=== PATIENT | female | born 1985 | race Caucasian/White ===

== ENCOUNTER 2016-09-07 14:25 | Inpatient (IN) | payer OTHER ==
[~2016-09-07] VITALS: Ht 162.6 cm; Wt 102.5 kg
[2016-09-07] MEDS ORDERED: Lactated Ringer's 1,000 ML IV PRN (15:10)
[2016-09-07] MEDS ORDERED: Sodium Chloride LOK Flush 10 mL Syringe IVFLUSH PRN (15:10)
[2016-09-07] MEDS ORDERED: Hemorrhage Kit, Post Partum XX ONE (15:10)
[2016-09-07] MEDS ORDERED: Oxytocin 10 Unit/mL Inj IM PRN (15:10)
[2016-09-07] MEDS ORDERED: Carboprost 250 mCg/mL Inj IM PRN (15:10)
[2016-09-07] MEDS ORDERED: Oxytocin 30 Units/500 mL LR 30 UNITS in IV Premix 1 EACH IV PRN (15:10)
[2016-09-07] MEDS ORDERED: Methylergonovine 0.2 mg/mL Inj IM PRN (15:10)
[2016-09-07 15:23] LABS: Mean Corpuscular Volume 87.7 fL (81-100)
--- NOTE | 2016-09-07 17:44 | PCM.HPOB ---
Subjective Date of Service: Sep 07, 2016 Referring Provider: Admitting Physician: Eunice Newell MD Primary Care Physician: Aixa Hurst MD Attending Physician: Eunice Newell MD Chief Complaint TOLAC History of Present History of Present Illness Janny Banda is a 30 year old at 40w with a PMH of Cesarian delivery due to chorioamnionitis. has been complicated by US determined LGA status at approximately 97-99%. Janny states that her last C section was very difficult and she had a protracted recovery process, thus she is apprehensive to pursue another CS and would like to reserve this option as a last resort. That being said her calculated probability of success for TOLAC in this instance is approximately 61%. She has been advised that a planned C section has a lower rate of adverse events, but would like to proceed with TOLAC. Upon presentation her cervix measured 3 cm, 90% effacement, and -2 station. She presented to the [facility] last evening for what she perceived to be active labor, but was sent home due to unchanged cervix over the course of several hours. 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) Past Medical History Obstetrical History: Chorioamnionitis resulting in Cesarian Section Surgical History: Cholecystectomy Knee arthroplasty x3 Hx Tobacco Use: No Smoking Status: Never Smoker Hx Alcohol Use: Yes (social) Hx Substance Use: No Past Family History Living Arrangement: with Family Genetic Screening/Counseling Genetic Screening/Counseling: Negative Baby father-had child w defect: No Review of Systems Constitutional: Y: Change of appitite, Chills, Dizziness, Fever, Malaise, Other , Pain, Sweats, Weakness, Weight loss Eyes: Denies: Blurred Vision, Conjunctive Inflammation, Double Vision, Eyelid Inflammation, Other, Pain, Redness, Vision Changes ENT: Denies: Dental Problems, Dysphagia, Ear Discharge, Ear Pain, Hoarseness, Membranes Dry, Nasal Congestion, Nose Discharge, Nose Pain, Other, Throat Pain, Tinnitus, Ulcers/Sores in Mouth Cardiovascular: Denies: Chest Pain, Edema, Orthopnea, Other, Palpitations, SOB while laying flat Respiratory: Denies: Cough, Cough with bloody sputum, Other, Pleuritic Chest Pain, Pleuritic Chest Pain, SOB with Exertion, Sputum, Wheezing Gastrointestinal: Reports: Constipation, Denies: Abdominal Pain, Black tarry stools, Blood in stool (red), Change in Appetite, Diarrhea, Epigastric pain, Heartburn, Nausea, Other, Use of Laxatives , Vomiting Genitourinary: Denies: Anuria, Change in Frequency, Dysuria, Hematuria, Incontinence, Nocturia, Other, Retention Musculoskeletal: Reports: Back Pain, Denies: Deformity, Limitation of Function, Neck Pain, Other, Redness, Shoulder Pain, Swelling Skin/Breasts: Denies: Bruising, Discharge, Dry or Flakiness, Jaundice, Lesions , Masses, Mastalgia, Other, Rash, Scars, Ulcers Skin: Denies: Bruising, Dry or Flakiness, Jaundice, Lesions, Other, Rash, Scars , Ulcers Neurological: Denies: Change in Speech, Confusion, Dizziness, Incoordination, Numbness, Other, Seizures, Somnolence, Tremors, Weakness Psychologic: Denies: Agitation, Anxious, Apprehensive, Depression, Insomnia, Instability, Nervousness, Other Endocrine: Denies: Blood Glucose Review, Change in Appitite, Diaphoresis, Excessive Thirst, Intolerent to Heat/Cold, Other, Recent A1C, Urinating frequently Hematologic: Denies: Abnormal bleeding, Adenopathy, Bruising, Other Medications Home medications Vitamin Valacyclovir 500 mg Daily Allergy Coded Allergies: No Known Allergies (Unverified , 09/06/16) Exam Vital Signs Exam Category 1 FHT Constitutional: Well-developed, Well-nourished, Normal habitus, Well-groomed HEENT: Atraumatic, PERRLA, EOMI, Scleral Anicteric Lungs: Clear to Auscultation, Clear to Percussion, Normal Air Movement Heart: Exam Unremarkable, Regular Rate/Rhythm, Normal S1, Normal S2, No Murmurs /Rubs/Gallops Fundus Firm Abdomen: Gravid, Normal bowel sounds, Soft Extremities: Pulses Palpable x4, Edema (Mild BL LE edema) Neurological/Psychiatric: Alert, Oriented X3, Cooperative, No Acute Distress Neuro: Grossly Neurologically Intact Labs/Diagnostics Maternal Blood Type: A (Positive) Hx Rho(D) Immune Globulin: No Group B Strep Results: Negative Previous Infant with GBS: No Rubella: Immune Lab History: Positive for: Hx Herpes (No active lesions at this time) OB Intrapartum Assessment/Plan Assessment Janny Banda is a 30 year old woman at 40 weeks gestation presenting in active labor. has been complicated by HSV with active lesion early in the course of , and US demonstrated macrosomia in the 94-99%. She has been advised that there is a very high likelihood that she may need to have another C section, however because she had such a prolonged and difficult recovery from her previous C section she wants to reserve this as a last resort after TOLAC. At the time of presentation her cervix was 3cm 90% and -2 station. Problems: (1) Active labor at term Plan: -Continue with TOLAC -Be aware of signs of cephalo-pelvic disproportion and shoulder dystocia given likely macrosomia -High likelihood of progression to Cesarian delivery Status: Acute ICD Code: [id number] Pain Evaluation: Adequate Pain Control Attending Statement The patient was seen and examined together with Dr. Ricky Lee DO on 2015 and I have added additional information to the note above. Ricky Lee DO Sep 07, 2016 17:37 Eunice Newell MD Sep 07, 2016 18:07
[2016-09-07] MEDS ORDERED: fentaNYL-PF 50 mCg/mL 2 mL Inj ONE (18:47)
[2016-09-07] MEDS ORDERED: fentaNYL 2 mCg/mL-Bupivicaine 0.125% 100 mL Premix EPIDURAL ONE (18:48)
[2016-09-07] MEDS ORDERED: Lactated Ringer's 500 ML IV ONE (19:21)
--- NOTE | 2016-09-07 19:23 | PCM.HPANE ---
Patient Data Surgeon Admitting Provider:Eunice Newell MD Attending Provider:Eunice Newell MD Primary Care Physician:Aixa Hurst MD Other Provider:Meek Naranjo Anesthesia Reason for Visit Early Labor EARLY LABOR Ht/WT & BMI Body Mass Index Allergies Coded Allergies: No Known Allergies (Unverified , 09/06/16) History Hx Alcohol Use: Yes (social)Hx Substance Use: No Smoking Status: Never Smoker Stop/Bang Risk Assessment Category Category 1A: Patient has history of documented sleep apnea, and HAS NOT received any narcotic, sedative or anesthesia administration during this stay. Category 1B: Patient has history of documented sleep apnea, and HAS received any narcotic , sedative or anesthesia administration during this stay Category 2: Patient has SUSPECTED Obstructive Sleep Apnea, and HAS received any narcotic , sedative or anesthesia administration during this stay. Category 3: Patient has SUSPECTED Obstructive Sleep Apnea and HAS NOT received narcotic, sedative or anesthesia administration during this stay. Category 4: Outpatient in Procedural Areas with known sleep apnea or who screen positive for High Risk via the STOP/BANG questionnaire. Exam Exam General Appearance: Alert, Oriented X3, Cooperative Lungs: Clear to Auscultation, Clear to Percussion, Normal Air Movement Heart: Exam Unremarkable Meds/Labs/Diagnostics Labs Test 09/07/16 15:15 White Blood Count 14.1th/mm3 (3.8-10.1) Red Blood Count 3.73mil/mm3 (3.90-5.20) Hemoglobin 10.8g/dL (12.0-15.6) Hematocrit 32.7% (35.0-46.0) Mean Corpuscular Volume 87.7fL (81-100) Mean Corpuscular Hemoglobin 29.0pg (27.0-35.0) Mean Corpuscular Hemoglobin Concent 33.0% (32.0-37.0) Red Cell Distribution Width 12.8% (12.3-15.4) Platelet Count 239bil/L (150-400) Plan Impression Patient chart reviewed, patient interviewed and anesthestic plan with risks, benefits, and alternatives discussed, and informed consent obtained. ASA Physical Status: ASA2 Mod Systemic Disease Anesthetic Plan: Epidural Bene/Risks/Altern/Consents: Yes HP Complete Prior to Induction: Yes Cruz John MD Sep 07, 2016 19:23
[2016-09-07] MEDS ORDERED: EPHEDrine Sulfate 50 mg/mL Inj IVPUSH PRN (19:25)
[2016-09-07] MEDS ORDERED: Ondansetron 2 mg/mL 2 mL Inj IVPUSH PRN (19:25)
[2016-09-07] MEDS ORDERED: fentaNYL 2 mCg/mL-Bupiv 0.125% 100 ML EPIDURAL SCH (19:25)
[2016-09-07] MEDS ORDERED: Atropine 1 mg/10 mL (Code) Syringe IVPUSH PRN (19:25)
[2016-09-08] MEDS ORDERED: Sodium Chloride LOK Flush 10 mL Syringe IVFLUSH SCH (00:30)
[2016-09-08] MEDS: Lactated Ringer's 1,000 ML IV SCH ×3 (01:51→06:36)
--- NOTE | 2016-09-08 07:07 | PCM.PNOBIP ---
Subjective Date of Service Sep 08, 2016 Subjective comfortable on epidural. No N./V. No complaint. Group B Strep Results: Negative Rubella: Immune Blood Type: A (Positive) Labs Laboratory Tests 09/07/16 15:15: White Blood Count 14.1, Red Blood Count 3.73, Hemoglobin 10.8, Hematocrit 32.7, Mean Corpuscular Volume 87.7, Mean Corpuscular Hemoglobin 29.0, Mean Corpuscular Hemoglobin Concent 33.0, Red Cell Distribution Width 12.8, Platelet Count 239 Exam Vital Signs Vital Signs Contraction frequency in minutes: MVUs: Heart Tracings Heart Tones Baseline 140 bpm Heart Rate Variability: Moderate Heart Rate Accelleration: Absent Heart Rate Deceleration: Absent Heart Rate Category: I Tocometry/IUPC Contraction frequency in minutes: every 5 minutes. at 4:16 a4 minutes prolonged decelerations resolved with IV hydration and position change back to baseline 140 with minimal-moderate variability spontaneous accelerations, no more decelerations. Sterile Vaginal Exam Cervical Dilation: 7 cms (to 8, last exam at 419 was 8 cm. ) Cervical Effacement: 100 % Station: -2 Exam General: Alert, Oriented X3, Cooperative OB Intrapartum Assessment/Plan Assessment 30 year old woman at 40 weeks 1 days 1. TOLAC , spontaneous labor. Labor dystocia, offered AROM. Desires to wait until further evaluation By . 2. Suspected macrosomia in the 94-99%. 3. GBS negative 4. HSV on suppression therapy. Problems: (1) Active labor at term Status: Acute ICD Code: [id number] Pain Evaluation: Adequate Pain Control Aj Mtz MD Sep 08, 2016 07:07
[2016-09-08] MEDS ORDERED: Dextrose 5% Lactated Ringer's 1,000 ML IV SCH (10:05)
[2016-09-08] MEDS ORDERED: Lactated Ringer's 1,000 ML IV SCH ×2 (10:07→17:30)
[2016-09-08] MEDS ORDERED: Oxytocin 30 Units/500 mL LR 30 UNITS in IV Premix 1 EACH IV PRN ×2 (10:10→17:30)
--- NOTE | 2016-09-08 10:24 | PCM.PNOBIP ---
Subjective Date of Service Sep 08, 2016 Delivery plan: Vaginal Delivery after Ceserean Visit History Janny is a 30yo with a hx of due to chorioamnionitis who presented to labor and delivery at 40weeks gestation with contractions. This has been complicated by US determined LGA status at approximately 97- 99%. Janny has reported that her was very difficult and she had a protracted recovery process, thus she is apprehensive to pursue another CS and would like to reserve this option as a last resort. She desired an epidural and one has been placed with good pain control. There have been some late decelerations on monitoring, thus an IUPC and scalp electrode have been placed for more accurate monitoring. She has been given supplemental oxygen and has been laying on her side which has improved her baby's heart rate. Pain Management: Epidural Gastrointestinal: No N/V Group B Strep Results: Negative Rubella: Immune Blood Type: A (Positive) Labs Laboratory Tests 09/07/16 15:15: White Blood Count 14.1, Red Blood Count 3.73, Hemoglobin 10.8, Hematocrit 32.7, Mean Corpuscular Volume 87.7, Mean Corpuscular Hemoglobin 29.0, Mean Corpuscular Hemoglobin Concent 33.0, Red Cell Distribution Width 12.8, Platelet Count 239 Exam Vital Signs Vital Signs Contraction frequency in minutes: MVUs: Vital Signs: VS reviewed, stable Heart Tracings Heart Tones Baseline 140 bpm Tocometry/IUPC Contraction frequency in minutes: MVUs: Sterile Vaginal Exam Cervical Dilation: 9 cms (to 8, last exam at 419 was 8 cm. ) Cervical Effacement: 100 % Station: -1 Exam Extremities: Other (trace lower extremity edema) Lungs: Clear to Auscultation, Normal Air Movement Heart: Regular Rate/Rhythm, No Murmurs/Rubs/Gallops General: Alert, Oriented X3, Cooperative, No Acute Distress OB Intrapartum Assessment/Plan Problems: (1) Active labor at term Status: Acute ICD Code: [id number] Intrapartum plan: Continue expected management (A discussed was had to inform the patient that she may need to have a delivery, however, she would like to continue to attempt a ), IUPC placed, scalp electrode placed Pain Evaluation: Adequate Pain Control Attending Statement Janny has had a protracted labor course. Her cervix was 8cm dilated at the time of AROM at 7AM and she did not progress to complete until 14:30, she has deep variables with pushing with good recovery between pushes. She is currently complete and +3 station. I have discussed with her in clinic previously the risk of shoulder dystocia given her baby's size and now I believe this risk is compounded given her protracted labor course. We have discussed baseline risk of shoulder dystocia and likely increased risk in her specific situation. Risks including permanent brachial plexus injury, need for episiotomy, dystocia maneuvers and have been discussed. She expresses understanding. Continue pushing with contractions at this time. section if labor stalls. Not a candidate for operative vaginal delivery given the above. Padmini Ruiz DO Sep 08, 2016 10:24 Aixa Hurst MD Sep 08, 2016 16:33
[2016-09-08] MEDS ORDERED: Methylergonovine 0.2 mg/mL Inj IM PRN (17:30)
[2016-09-08] MEDS ORDERED: Hemorrhage Kit, Post Partum XX ONE (17:30)
[2016-09-08] MEDS ORDERED: Carboprost 250 mCg/mL Inj IM PRN (17:30)
[2016-09-08] MEDS ORDERED: Oxytocin 10 Unit/mL Inj IM PRN (17:30)
[2016-09-08] MEDS ORDERED: Witch Hazel-Glycerin Pads TOPICAL PRN (17:30)
[2016-09-08] MEDS ORDERED: LANOlin HPA 7 Gm Ointment TOPICAL PRN (17:30)
[2016-09-08] MEDS: Benzocaine (Dermoplast) 20% 60 Gm Spray TOPICAL PRN (18:34)
--- NOTE | 2016-09-08 19:36 | PCM.ANEP1 ---
Post Anesthesia Phase 1 PACU Phase 1 Assessment Date of Service: Sep 08, 2016 Anesthetic Administered: Epidural Level of Alertness: Awake, talking SNEED's with Equal Strength: Yes Pain: No Nausea or Vomiting: No Oxygen Delivery: Room Air Lungs: Clear to Auscultation, Normal Air Movement Dermatome Level: Full Sensation Summary Pleased with epidural. Keenan Hatch MD Sep 08, 2016 19:36
--- NOTE | 2016-09-08 19:37 | PCM.ANEP2 ---
Post Anesthesia Evaluation ASA/CMS Post Anesthesia Date of Service: Sep 08, 2016 VS in Patient's Normal Range?: Yes Resp Stable; Airway Patent?: Yes CV Function & Hydration Stable: Yes Mental Status Recovered?: Yes Pain control Satisfactory?: Yes N/V Control Satisfactory?: Yes Keenan Hatch MD Sep 08, 2016 19:37
[2016-09-09 07:14] LABS: Mean Corpuscular Volume 90.4 fL (81-100)
--- NOTE | 2016-09-09 08:20 | PCM.DIOB ---
Obstetrical Disch Instruction Dates of Hospitalization Date of Hospital Admission Sep 07, 2016 at 15:23 Providers Admitting Physician: Eunice Newell MD Primary Care Physician: Aixa Hurst MD Attending Physician: Eunice Newell MD Discharge Diagnosis Discharge Diagnosis Status post vaginal after Problems: (1) Active labor at term Status: Acute Diet Discharge Diet: No restrictions Activity Discharge Activity-General: Pelvic Rest for 6 weeks, Try not to overdue, Be up and about, Balance rest and activity Dressing and Incisional Care Hygiene: May shower, Sitz bath, Dermoplast spray, Witch Nikki pads Additional Instructions Discharge Instructions Please call with severe pain, temperature greater than 100.5 degrees, heavy vaginal bleeding or malodorous vaginal discharge. Follow Up Plan Follow Up Plan 6 weeks Follow-up Provider (F9): Aixa Hurst MD Call your provider for: Fever or Chills, Shortness of breath, Heavy vaginal bleeding Aixa Hurst MD Sep 09, 2016 08:20
[2016-09-09] MEDS ORDERED: IBUP800T28 PO (08:21)
[2016-09-09] MEDS ORDERED: DOCU-41 PO (08:21)
--- NOTE | 2016-09-09 08:25 | PCM.DC.OB ---
Obstetrical Discharge Summary Date of Service Sep 09, 2016 Date of hospital admission Sep 07, 2016 at 15:23 Date of Discharge: Sep 09, 2015 Providers Admitting Physician: Eunice Newell MD Primary Care Physician: Bronwyn Hurst MD Attending Physician: Eunice Newell MD Problems: (1) Active labor at term Status: Acute Invasive procedures Vaginal after section. Brief History and Physical: Janny Banda is a 30 year old at 40w with a PMH of Cesarian delivery due to chorioamnionitis. has been complicated by US determined LGA status at approximately 97-99%. Janny states that her last C section was very difficult and she had a protracted recovery process, thus she is apprehensive to pursue another CS and would like to reserve this option as a last resort. That being said her calculated probability of success for TOLAC in this instance is approximately 61%. She has been advised that a planned C section has a lower rate of adverse events, but would like to proceed with TOLAC. Upon presentation her cervix measured 3 cm, 90% effacement, and -2 station. She presented to the [facility] last evening for what she perceived to be active labor, but was sent home due to unchanged cervix over the course of several hours. Hospital Course: She was admitted in active labor on the evening of the . She made very slowly progress overnight into the morning of the . Her membranes were ruptured at 7:30AM on the morning of the at 8cm dilated. Pitocin was started for augmentation and she slowly reached complete around 14:35. She began to push and delivered a liveborn female infant on the afternoon of the weighing 8# 13oz with apgars of 9 and 9. Please see the delivery note for details. she did well. Her pain was well controlled, she was tolerating a regular diet, voiding and ambulating on her own by day# 1. Her hemoglobin, white count and platelets were stable. At this point, she was deemed stable for discharge. Docusate Sodium (Colace) 100 Mg Capsule 100 MG PO BID Prescribed by: BRONWYN HURST MD Ibuprofen (Ibuprofen) 800 Mg Tablet 800 MG PO Q6H PRN PRN For Pain Prescribed by: BRONWYN HURST MD Disposition Follow up in 6 weeks for a visit. Discharge Diet: No restrictions Discharge Activity-General: Pelvic Rest for 6 weeks, Try not to overdue, Be up and about Patient instructions Please call with severe pain, temperature greater than 100.5, malodorous discharge or heavy vaginal bleeding. Vital Signs Vital Sign - Last Date Time Temp Pulse Resp B/P Pulse Ox O2 Delivery O2 Flow Rate FiO2 09/08/16 19:36 Room Air General: Alert, Oriented X3, No Acute Distress Chest & Lungs: Clear to auscultation & percussion Cardiovascular: Exam Unremarkable, Regular Rate/Rhythm Abdomen: Tender, Non-distended, Soft (Fundus firm) Extremities: No cyanosis/clubbing/edma bilat Lab and Diagnostics Result Diagram: 09/09/16 0655 Bronwyn Hurst MD Sep 09, 2016 08:25
[2016-09-09 08:39] VITALS: BP 100/59; PULSE 78; RESP 16
--- NOTE | 2016-09-09 13:43 | OP ---
[address] [address] OPERATIVE REPORT PATIENT: DAYO GOOD : 1985 MR#: [id number] ADMIT: 09/07/2016 JOB ID: [id number] DATE OF SURGERY: 09/08/2016 SURGEON: Aixa Hurst MD. PREOPERATIVE DIAGNOSIS(ES): 1. A 30-year-old, 2, para 1-0-0-1 female, at 40 weeks gestational age, admitted in active labor. 2. History of section x1 for chorioamnionitis in 2012. 3. History of herpes simplex virus, on antiviral prophylaxis. 4. History of large gestational age with estimated weight approximately 96th percentile with an abdominal circumference greater than the 99th percentile. POSTOPERATIVE DIAGNOSIS(ES): 1. A 30-year-old, 2, para 1-0-0-1 female, at 40 weeks gestational age, admitted in active labor. 2. History of section x1 for chorioamnionitis in 2012. 3. History of herpes simplex virus, on antiviral prophylaxis. 4. History of large gestational age with estimated weight approximately 96th percentile with an abdominal circumference greater than the 99th percentile. PROCEDURE PERFORMED: Vaginal after section of a liveborn female , born on September 08, 2018, at 16:53 hours, weighing 8 pounds 13 ounces, with Apgars of 9 at one minute, 9 at five minutes. weight is 4010 g. Complications: None Estimated blood loss: 400 cc Anesthesia: Epidural The patient was admitted on the afternoon of the complaining of regular uterine contractions. She was admitted and an epidural was placed. She made slow progress over the evening of the into the where she went from 4 to 8 cm dilated by approximately 4 a.m. on the . Artificial rupture of membranes was completed at 7:45 the same day, and at that time, she was noted to be 8 cm dilated. She slowly progressed to complete by around 1500 hours on the . Given her slow labor progress and estimated weight, a briana discussion was had with the patient regarding risk of shoulder dystocia given her protracted labor course and the risks involved with this, including permanent brachial plexus injury, hypoxia and . Knowing this, she elected to proceed with delivery, and when she was noted to be complete, she then began pushing, bringing the 's vertex to the perineum. PROCEDURE: The patient was noted to be complete and pushing with good movement, so she was brought down to dorsal lithotomy position and prepped and draped in the usual sterile fashion for delivery. She was asked to push and the head delivered spontaneously in the PRESTON position over an intact perineum. Nuchal cord was checked and none was noted. The anterior shoulder then delivered easily, followed by the posterior shoulder and the remainder of the was then easily delivered. After a 60-second cord clamping delay, the cord was then clamped and cut, and the infant was passed to the mother's abdomen where nursing personnel were in attendance. Cord blood was then obtained. The placenta delivered intact spontaneously and was passed off the table. Thirty units of Pitocin was placed in the IV bag to firm the uterus. Examination of vaginal vault revealed a second-degree laceration which was repaired with 3-0 Vicryl in the usual running fashion. She also had a left periclitoral abrasion which was reapproximated with a running nonlocking stitch of 4-0 Vicryl. Manual exploration of the uterus was completed after the delivery and a small amount of blood clot was then cleared from the lower uterine segment. She had good uterine tone following this. All sponge, needle, and instrument counts were correct at the completion of the procedure. The patient tolerated procedure well, recovered in Labor and Delivery with her infant. SELENE
[2016-09-09] MEDS: Benzocaine (Dermoplast) 20% 60 Gm Spray TOPICAL PRN (14:37)
== END 2016-09-09 14:45 | disposition home or self-care (01) | DRG 775 ==
LOC: FBCO 14:25 → FBC 15:23
PROVIDERS: ADMIT Obstetrics & Gynecology; ATTEND Obstetrics & Gynecology
PROC: 0KQM0ZZ Repair Perineum Muscle, Open Approach (ICD-10-PCS; principal; 2016-09-08)
PROC: 10H07YZ Insertion of Other Device into Products of Conception, Via Natural or Artificial Opening (ICD-10-PCS; 2016-09-08)
PROC: 10907ZC Drainage of Amniotic Fluid, Therapeutic from Products of Conception, Via Natural or Artificial Opening (ICD-10-PCS; 2016-09-08)
DX: O70.1 Second degree perineal laceration during delivery (principal); Z37.0 Single live birth; O76 Abnormality in fetal heart rate and rhythm complicating labor and delivery; O34.211 Maternal care for low transverse scar from previous cesarean delivery; Z3A.40 40 weeks gestation of pregnancy